=== PATIENT | male | born 1970 | race Caucasian/White ===

== ENCOUNTER 2018-04-30 11:05 | Emergency (ER) | payer SELFPAY ==
[~2018-04-30] VITALS: Ht 170.2 cm; Wt 94.5 kg
[2018-04-30 11:11] VITALS: BP 131/92
[2018-04-30 12:25] VITALS: BP 132/79
== END 2018-04-30 12:20 | disposition home or self-care (01) ==
LOC: MED 11:05
DX: H81.10 Benign paroxysmal vertigo, unspecified ear (principal)
CPT/HCPCS: 81002; 99283